=== PATIENT | male | born 1965 | race Caucasian/White ===

== ENCOUNTER → 2019-08-22 | Outpatient (CLI) | payer BC | LOC: M LABSMTC 10:21 | PROVIDERS: ATTEND Physical Medicine & Rehabilitation | DX: Z11.59 Encounter for screening for other viral diseases (principal); Z03.818 Encounter for observation for suspected exposure to other biological agents ruled out ==

== ENCOUNTER → 2019-10-03 | Outpatient (REF) | payer BC, SELFPAY ==
[2019-11-10 09:26] LABS: ANTINUCLEAR ANTIBODIES DIRECT See Separate Report; HLA-B27 SEE SEPARATE REPORT
[2019-11-17 07:44] LABS: C REACTIVE PROTEIN QUANTITATIV 1.03 MG/DL (0.00-0.30); CREATININE FOR GFR 1.12 MG/DL (0.70-1.30); GLOMERULAR FILTRATION RATE > 60.0 (>56); RHEUMATOID FACTOR QUANT < 10.0 IU/ML (<15.0)
== END ==
LOC: M PLALAB 15:12
PROVIDERS: ATTEND Physician Assistant
DX: M51.37 Other intervertebral disc degeneration, lumbosacral region (principal)

== ENCOUNTER → 2020-03-04 | Outpatient (CLI) | payer BC ==
[~2020-03-04] MED LIST: ALBU83IN INH; B-12100T2 PO; BREO1INH3 INH; CANNABIS; CELE1CAP4 PO; FURO20TA2 PO; GABA-845 PO; INVO100T PO; LANS15CA PO; LOSA100T50 PO; METO37.5 PO; NORT10CA2 PO; ROSU20TA5 PO; SING5CHW23 PO
== END ==
LOC: M LABSMTC 13:10
PROVIDERS: ATTEND Anesthesiology
DX: Z01.812 Encounter for preprocedural laboratory examination (principal); Z20.822 Contact with and (suspected) exposure to COVID-19

== ENCOUNTER 2020-03-08 06:53 | Inpatient (IN) | payer BC ==
--- NOTE | 2020-03-05 13:02 | HPE ---
HISTORY AND PHYSICAL DATE OF ADMISSION: 03/08/2020 ATTENDING: Ethel ROTHMAN MD CHIEF COMPLAINT: Left hip pain and stiffness. HISTORY: This is a 54-year-old male patient with progressively worsening left hip pain and stiffness. He failed to improve with conservative management. He is elected for surgery for his continued symptoms. He has pain with weightbearing activities and activities of daily living. He uses a walker to get around. He has failed to improve with steroid injections. He has been consented by Dr. Rothman for a left total hip arthroplasty. Medical optimization is pending with [facility]. ALLERGIES: No known drug allergies. CURRENT MEDICATIONS: 1. Invokana 100 mg one tablet once per day. 2. Losartan 100 mg one tablet once per day. 3. Metoprolol 25 mg one tablet once per day. 4. Lansoprazole 30 mg one tablet once per day. 5. Celebrex 200 mg one tablet once per day and he will discontinue that three days prior. 6. Montelukast 10 mg daily. 7. Rosuvastatin 10 mg daily. 8. Lasix 20 mg as required. 9. Nortriptyline 10 mg two tablets at bedtime. 10. Breo Ellipta 200/25 mg inhaler used as directed. 11. Gabapentin 900 mg three times a day. 12. Daily multivitamin. 13. B-12. 14. Prescription for medical cannabis. MEDICAL CONDITIONS: 1. Obesity. 2. End stage osteoarthritis of his bilateral hips. 3. Asthma. 4. High blood pressure. 5. Sleep apnea. 6. Diabetes mellitus type 2. 7. Elevated cholesterol. SOCIAL HISTORY: He continues to work at the [employer]. He does not smoke. He occasionally uses alcohol. FAMILY HISTORY: Noncontributory. REVIEW OF SYSTEMS: Denies fever or chills. Denies chest pain, shortness of breath, or cough. Denies difficulty with breathing. Denies abdominal pain. Denies nausea or vomiting. He notes persistent pain with weight bearing activities and activities of daily living. PHYSICAL EXAMINATION: GENERAL: Male patient who ambulates with the use of a rolling walker. He favors mainly his left side. LEFT HIP: Exam of the left hip reveals the skin to be intact, no erythema, edema, or ecchymosis. Straight leg raise testing is negative. Calf is soft and nontender to palpation. The leg is intact to light touch. Decrease internal and external rotation on exam. Pain with range of motion in all planes. NECK: Neck is supple without adenopathy or JVD. LUNGS: Lungs are clear to auscultation without rales or wheezes. HEART: Regular rate and rhythm. ABDOMEN: Bowel sounds are present. VITAL SIGNS: Height 64 inches, weight 230 pounds, temperature 96.7, blood pressure 114/84, pulse 56, respirations 12. LABORATORY DATA: WBC count 6.1, RBC count 5.1, hemoglobin 15.8, hematocrit 48.6. Sodium 140, potassium 4.5. PT 13.3, INR 0.96. Chest x-ray shows no acute cardiopulmonary disease process noted. Medical optimization, [facility], pending. IMPRESSION: Symptomatic osteoarthritis of the left hip. PLAN: He is consented for a left total hip arthroplasty by Dr. Rothman. We reviewed his preoperative and postoperative instructions. We went over the importance of no NSAIDs five days prior to surgery. We discussed to only take his medications as directed by the anesthesia group and by his primary. He is only to take the medications as directed by those providers. He understands the n.p.o. after midnight and what n.p.o. after midnight requires. He understands to self-quarantine after his COVID testing. We went over the changes in the system secondary to the current COVID crisis. Also understands to bring CPAP machine with him to the hospital. All of his questions were answered. Dr. Lorna BALDERAS
[~2020-03-08] VITALS: Ht 162.6 cm; Wt 108.0 kg
[2020-03-08] VITALS (7 sets, daily range): BP systolic 115–133; BP diastolic 62–81
[~2020-03-08 06:53] MED LIST changes: +LIDOCAINE 1% MDV 20ML VIAL SQ PRN
[2020-03-08] MEDS ORDERED: LR 1,000 ML IV ONE (07:00)
[2020-03-08] MEDS ORDERED: ceFAZolin SOD 2 GM in IV 1 EA IV ONE (07:00)
[2020-03-08] MEDS ORDERED: ACETAMINOPHEN 500 MG TAB PO ONE (07:00)
[2020-03-08] MEDS ORDERED: MIDAZOLAM INJ 2MG/2ML VIAL (J2250 PER 1MG) As Ordered ONE (08:28)
[2020-03-08] MEDS ORDERED: fentaNYL 100 MCG/2 ML INJECTION (J3010) As Ordered ONE (08:28)
[2020-03-08] MEDS ORDERED: ONDANSETRON 4MG/2ML VIAL As Ordered ONE (08:29)
[2020-03-08] MEDS ORDERED: propofoL 500 MG/50 ML VIAL As Ordered ONE (08:29)
[2020-03-08] MEDS ORDERED: LIDOCAINE 2% 100MG/5ML SDV (FOR ANES.) As Ordered ONE (08:33)
[2020-03-08] MEDS ORDERED: TRANEXAMIC ACID 100 MG/ML 10ML VIAL As Ordered ONE (10:14)
[2020-03-08] MEDS ORDERED: ceFAZolin 1GM VIAL (J0690 PER 500MG) As Ordered ONE (10:15)
[2020-03-08] MEDS ORDERED: EPINEPHrine INJ 1 MG/ML 1ML AMP As Ordered ONE (10:25)
[2020-03-08] MEDS ORDERED: ePHEDrine SULFATE 25 MG/5 ML(5MG/ML) SYRINGE As Ordered ONE (11:14)
[2020-03-08] MEDS ORDERED: PHENYLephrine 500MCG 5ML (100MCG/ML) SYRINGE As Ordered ONE (11:14)
[2020-03-08] MEDS ORDERED: GLYCOPYRROLATE INJ 0.2 MG/ML 2 ML VIAL As Ordered ONE (11:21)
[2020-03-08] MEDS ORDERED: METOCLOPRAMIDE INJ 10MG/2ML VIAL (J2765 PER 1) IV PRN (12:45)
[2020-03-08] MEDS ORDERED: fentaNYL 100 MCG/2 ML INJECTION (J3010) IV PRN (12:45)
[2020-03-08] MEDS ORDERED: MORPHINE 2 MG/ML 1ML VIAL (J2270) IV PRN ×2 (12:45)
[2020-03-08] MEDS ORDERED: ONDANSETRON 4MG/2ML VIAL IV PRN ×2 (12:45)
[2020-03-08] MEDS ORDERED: LR 1,000 ML IV SCH ×2 (12:45)
[2020-03-08] MEDS ORDERED: PERCOCET 5MG/325MG TAB PO PRN ×4 (12:45→17:00)
[2020-03-08] MEDS ORDERED: ACETAMINOPHEN TAB 650MG DOSE (2X325MG) PO PRN (12:45)
--- NOTE | 2020-03-08 12:59 | REP ---
INDICATION: POST OP IN PACU COMPARISON: None. TECHNIQUE: AP and cross-table lateral views. FINDINGS: The patient is status post left hip replacement with normal positioning and appearance to the femoral and acetabular components. Overlying postsurgical changes appreciated. IMPRESSION: Satisfactory left hip replacement radiographs. <Electronically signed by Griffin Paz > 03/08/20 [id number]
--- NOTE | 2020-03-08 15:05 | RO ---
OPERATIVE NOTE DATE OF OPERATION: 03/08/2020 PREOPERATIVE DIAGNOSIS: Left hip degenerative arthritis. POSTOPERATIVE DIAGNOSIS: Left hip degenerative arthritis PROCEDURE: Left total hip arthroplasty using a size 52 GRIPTION cup with a 36 mm polyethylene neutral liner with 36 mm ceramic head with 1.5 length neck and a size 5 standard offset [place] stem. Prosthesis was made by [employer]. SURGEON: Sergio Rothman MD SILK SCREEN OPERATOR: [facility] ANESTHESIA: Spinal. COMPLICATIONS: None. SPECIMENS: Femoral head. ESTIMATED BLOOD LOSS: 200 ml. PROCEDURE PERFORMED: Antibiotics were given intravenously preoperatively. Successful spinal was induced and he was placed in the lateral decubitus position. The down leg well padded, especially the peroneal nerve and an axillary roll was utilized and [place] hip position was utilized. His left hip area was carefully prepped and draped in the usual sterile fashion. Then after appropriate time out, a longitudinal incision was made laterally for a standard direct lateral approach to the hip. Bovie cautery was used to coagulate crossing vessels down to the tensor fascia, which was then divided in line with the skin incision. Then we split the gluteus medius anterior 1/3, posterior 2/3 junction, dissected down to the gluteus minimus, dividing that and then the underlying hip capsule and then carefully dissecting off the proximal femur as we externally rotated the hip and eventually dislocated his hip anteriorly. The piriform fossa was identified and starter reamer utilized followed by canal finding reamer and then the lateralizing reamer and then we reamed up to a size 5. Femoral neck osteotomy was performed using a template and then we broached up to a size 5. It had good fit and fill. We then exposed the acetabulum and performed a labral excision 360 degrees and then we began reaming beginning at 47 mm advanced to 51. The trial 52 cup actually fit very nicely. We copiously irrigated the acetabulum as we did several times throughout the surgery and then placed the real at 52 GRIPTION cup with excellent purchase. We irrigated and placed the central hole eliminator and then placed the polyethylene and made sure it was seated properly. We then irrigated out the femoral canal, placed the trial broach #5 and then trialed with a 1.5 neck and a 36 mm ball and brought the hip through range of motion. It was very stable with flexion internal rotation and extension and external rotation with minimal soft issue telescoping and this was felt this was appropriate length neck to be used and the cup seemed to be in good position. We then removed the trial broach, irrigated out the canal and placed the real stem, dried the trunnion and placed the 1.5 x 36 mm ceramic ball and then reduced the hip after irrigating once again. We then closed the anterior hip capsule and gluteus minimus back anatomically with interrupted #1 PDS suture, irrigating between layers, closed the gluteus medius back anatomically with interrupted #1 PDS suture irrigating between layers, placed tranexamic acid and closed the tensor fascia with a combination of #1 PDS sutures and a running #1 STRATAFIX. Copiously irrigated out the subdermal tissues and closed the subdermal tissue with interrupted 2-0 PDS suture and then the skin was closed with sammie covered by an Optifoam and dry sterile bulky dressing. He was then turned supine and transferred to the recovery room in stable condition. There were no intraoperative complications. Mr. Julio Mukherjee was critical to the success of this difficult procedure by helping with appropriate soft tissue retraction, help to manipulate the leg in and out of the leg bag, help close the wound, help to prepare the patient amongst many other tasks to allow me to perform the operation smoothly, efficiently and safely in this very obese male. SHERRIE
[2020-03-08] MEDS: MORPHINE 4 MG/ML 1ML VIAL/SYRINGE (J2270) IV PRN ×3 (16:35→23:05)
[2020-03-08] MEDS: ceFAZolin SOD 2 GM in IV 1 EA IV SCH (17:10)
[2020-03-08] MEDS: PERCOCET 5MG/325MG TAB PO PRN ×2 (17:11→21:45)
[2020-03-08] MEDS ORDERED: HumaLOG INSULIN (NovoLOG) PER UNIT SC SCH (21:00)
[2020-03-08] MEDS ORDERED: ROSUVASTATIN 10 MG TAB (CRESTOR) PO SCH (21:00)
[2020-03-08] MEDS ORDERED: NORTRIPTYLINE 10 MG CAP PO SCH (21:00)
[2020-03-08] MEDS ORDERED: GLUCAGON INJ 1MG VIAL SC PRN (21:15)
[2020-03-08] MEDS ORDERED: GLUCOSE 4GM CHEW TABLET PO PRN (21:15)
[2020-03-08] MEDS ORDERED: DEXTROSE 50% 50 ML SYRINGE IV PRN (21:15)
[2020-03-08] MEDS ORDERED: ALBUTEROL SULFATE 2.5 MG/0.5 ML INH NEB SOLN INH PRN (21:15)
--- NOTE | 2020-03-08 21:16 | CR.PDOC ---
General Date of Consultation: Mar 08, 2020 Consultation REASON FOR CONSULTATION/CHIEF COMPLAINT: Medical management HISTORY OF PRESENT ILLNESS: Patient is 54 years old male with past mental history of obesity, diabetes, asthma, hypertension, hyperlipidemia presented to the hospital for elective total hip arthroplasty, which was done today. Patient tolerates procedure well. Patient denied fever, chills, nausea, vomiting, diarrhea or dysuria ALLERGIES: Please see below. HOME MEDICATIONS: Please see below. PAST MEDICAL HISTORY: 1. Obesity. 2. End stage osteoarthritis of his bilateral hips. 3. Asthma 4. High blood pressure. 5. Sleep apnea. 6. Diabetes mellitus type 2. 7. Elevated cholesterol. PAST SURGICAL HISTORY: None FAMILY HISTORY: I personally reviewed family history and found not pertinent SOCIAL HISTORY: Tobacco use denies ETOH: Socially IV drug use: Denies REVIEW OF SYSTEMS: 10 point review system negative except as listed above PHYSICAL EXAMINATION: VITAL SIGNS: Please see below. Objective: GENERAL APPEARANCE: NAD HEENT: no scleral icterus, no JVD, EOMI CARDIOVASCULAR: S1S2 LUNGS: CTA ABDOMEN: soft & not tender w palpitation MUSCULOSKELETAL: no cyanosis, no swelling INTEGUMENT: no generalized pallor NEUROLOGICAL: cranial nerve function from 2-12 intact intact, follows commands, speech not dysarthric LABORATORY DATA: Please see below. ASSESSMENT/PLAN: Status post left hip replacement Pain management Anticoagulation per orthopedic team Hyperlipidemia Statin Hypertension/CAD Continue home cardioprotective medication Obstructive sleep apnea Patient may use his own CPAP Diabetes type 2 Insulin sliding scale Asthma Not in acute exacerbation Vital Signs/I&O Vital Signs Date Time Temp Pulse Resp B/P (MAP) Pulse Ox O2 Delivery O2 Flow Rate FiO2 03/08/20 20:46 99.2 66 18 125/77 (93) 98 Room Air 03/08/20 13:41 2.0 Laboratory Data Labs 24H Laboratory Tests 2 03/08/20 07:49: Bedside Glucose (Misc Panel) 86 Allergies Coded Allergies: hydrocodone (Verified Allergy, Unknown, ITCHING, 03/04/20) tramadol (Verified Allergy, Unknown, ITCHING, 03/04/20) Home Medications Scheduled Canagliflozin (Invokana) 100 Mg Tablet, 100 MG PO DAILY, (Reported) Celecoxib (Celebrex) 200 Mg Capsule, 200 MG PO DAILY, (Reported) Cyanocobalamin (Vitamin B-12) (Vitamin B-12) 100 Mcg Tablet, 1,000 MG PO DAILY, (Reported) Fluticasone/Vilanterol (Breo Ellipta 200-25 Mcg INH) 1 Each Blst.w.dev, 1 PUFF INH DAILY, (Reported) Furosemide (Furosemide) 20 Mg Tablet, 20 MG PO DAILY, (Reported) Gabapentin (Gabapentin) 400 Mg Capsule, 900 MG PO TID, (Reported) Lansoprazole (Lansoprazole) 15 Mg Capsule.dr, 30 MG PO DAILY, (Reported) Losartan Potassium (Losartan Potassium) 100 Mg Tablet, 100 MG PO DAILY, (Reported) Metoprolol Tartrate (Metoprolol Tartrate) 37.5 Mg Tablet, 25 MG PO DAILY, (Reported) Montelukast Sodium (Singulair) 5 Mg Tab.chew, 10 MG PO DAILY, (Reported) Nortriptyline HCl (Nortriptyline HCl) 10 Mg Capsule, 10 MG PO QHS, (Reported) Rosuvastatin Calcium (Rosuvastatin Calcium) 20 Mg Tablet, 10 MG PO DAILY, (Repo rted) Scheduled PRN Albuterol Sulf (Albuterol Sulfate) 2.5 Mg/3 Ml Vial.neb, 2.5 MG INH for RADHA RTNESS OF BREATH, (Reported) Miscellaneous Medications [Cannabis] , (Reported) SATURNINO MCGREGOR DO Mar 08, 2020 21:16
[2020-03-08] MEDS: GABAPENTIN 300 MG CAP PO SCH (21:44)
[2020-03-08] MEDS: ASPIRIN 81 MG ENTERIC TAB PO SCH (21:44)
[2020-03-09] MEDS: ceFAZolin SOD 2 GM in IV 1 EA IV SCH ×2 (02:35→10:07)
[2020-03-09] MEDS: PERCOCET 5MG/325MG TAB PO PRN ×2 (02:35→08:06)
[2020-03-09 02:40] VITALS: BP_SYST 124; BP_SYST 146; BP_DIAS 72; BP_DIAS 77
[2020-03-09 06:00] VITALS: BP 126/74
[2020-03-09] MEDS ORDERED: PERC5TAB12 PO (06:32)
[2020-03-09] MEDS ORDERED: ECOT81TA5 PO (06:32)
[2020-03-09 06:45] LABS: HEMATOCRIT 43.1 % (42.0-52.0); HEMOGLOBIN 13.6 g/dl (13.5-17.5); MEAN CORPUSCULAR HEMOGLOBIN 30.3 pg (27.0-33.0); MEAN CORPUSCULAR HGB CONC 31.6 g/dl (32.0-36.5); PLATELET COUNT, AUTOMATED 124 10^3/uL (150-450); RED BLOOD COUNT 4.49 10^6/uL (4.30-6.10); WHITE BLOOD COUNT 6.5 10^3/uL (4.0-10.0)
[2020-03-09 07:20] LABS: ALBUMIN 3.2 GM/DL (3.2-5.2); ALT/SGPT 16 U/L (12-78); BILIRUBIN,TOTAL 0.4 MG/DL (0.2-1.0); BLOOD UREA NITROGEN 9 MG/DL (7-18); CALCIUM LEVEL 8.9 MG/DL (8.5-10.1); CARBON DIOXIDE LEVEL 27 MEQ/L (21-32); CHLORIDE LEVEL 105 MEQ/L (98-107); CREATININE FOR GFR 0.93 MG/DL (0.70-1.30); GLOMERULAR FILTRATION RATE > 60.0 (>56); GLUCOSE, FASTING 112 MG/DL (70-100); POTASSIUM SERUM 4.5 MEQ/L (3.5-5.1); SODIUM LEVEL 138 MEQ/L (136-145); TOTAL PROTEIN 6.6 GM/DL (6.4-8.2)
[2020-03-09] MEDS: HumaLOG INSULIN (NovoLOG) PER UNIT SC SCH ×2 (07:30→12:00)
[2020-03-09 08:05] VITALS: BP 126/74
[2020-03-09] MEDS: GABAPENTIN 300 MG CAP PO SCH (08:08)
[2020-03-09] MEDS: ASPIRIN 81 MG ENTERIC TAB PO SCH (08:09)
[2020-03-09] MEDS ORDERED: LOSARTAN 50MG TABLET PO SCH (09:00)
[2020-03-09] MEDS ORDERED: MOM 30ML SUSPENSION UDC PO SCH (09:00)
[2020-03-09] MEDS ORDERED: MONTELUKAST 10 MG TAB PO SCH (09:00)
[2020-03-09] MEDS ORDERED: FUROSEMIDE 20 MG TAB PO SCH (09:00)
[2020-03-09] MEDS ORDERED: METOPROLOL TART 25 MG TABLET PO SCH (09:00)
[2020-03-09] MEDS ORDERED: MIRALAX *UNIT DOSE* 17GM PACKET PO SCH (09:00)
[2020-03-09 10:00] VITALS: BP 124/71
--- NOTE | 2020-03-11 14:43 | DSES ---
DISCHARGE SUMMARY DATE OF ADMISSION: 03/08/2020 DATE OF DISCHARGE: 03/09/2020 ADMITTING DIAGNOSIS: Osteoarthritis, left hip. OTHER DIAGNOSES: 1. Obesity. 2. Diabetes. 3. Asthma. 4. Hypertension. 5. Elevated lipids. 6. Sleep apnea. DISCHARGE DIAGNOSIS: Osteoarthritis, left hip; status post left total hip arthroplasty. OPERATION PERFORMED: Left total hip arthroplasty. HISTORY: This is a 54-year-old male patient who had progressively worsening left hip pain and stiffness. He failed to improve with conservative management. He was admitted for elective hip replacement on the left side. HOSPITAL COURSE: The patient was admitted on the day of surgery and underwent a left total hip arthroplasty, which was uneventful. He did well in the postoperative period and his hospital course was without complications. He was up with physical therapy per their protocol and his pain was controlled. On the day of discharge, he was weightbearing as tolerated on his left lower extremity. DISCHARGE INSTRUCTIONS: He will use aspirin 81 mg b.i.d. per the protocol for deep vein thrombosis (DVT) prophylaxis. He will also use ROBIN stockings for 30 days postoperative for DVT prophylaxis. He will resume his preoperative medications and diet. He was given instructions to include, but not limited to wound monitoring and activity limitations. He will use oral pain medications for pain control. He will follow-up in our office in 10-14 days for surgical follow-up. Please refer to the medical record for further details.
== END 2020-03-09 14:15 | disposition home or self-care (01) | DRG 301 ==
LOC: M OR 06:53 → M MS5PR 13:50
PROVIDERS: ADMIT Orthopaedic Surgery; ATTEND Orthopaedic Surgery
PROC: 0SRB04Z Replacement of Left Hip Joint with Ceramic on Polyethylene Synthetic Substitute, Open Approach (ICD-10-PCS; principal; 2020-03-08 09:50)
DX: M16.12 Unilateral primary osteoarthritis, left hip (principal); E66.9 Obesity, unspecified; I10 Essential (primary) hypertension; J45.40 Moderate persistent asthma, uncomplicated; E11.9 Type 2 diabetes mellitus without complications; G47.33 Obstructive sleep apnea (adult) (pediatric); Z79.899 Other long term (current) drug therapy; K21.9 Gastro-esophageal reflux disease without esophagitis